=== PATIENT | male | born 1960 | race Caucasian/White ===

== ENCOUNTER 2017-07-31 10:04 | Emergency (ER) | payer BC ==
[~2017-07-31] VITALS: Ht 182.9 cm; Wt 117.9 kg
[~2017-07-31 10:04] MED LIST: ALBU90I INH; AMOX500 PO; ASPI81CH; AZIT250 PO; CEPH500 PO; Ibuprofen Ib200 MG; K-Dur20 MEQ PO; MAGNESIUM400 MG PO; METF500C; METO50ER PO; OXYACE5T PO; Pravachol40 MG; [UNRECOGNIZED DRUG - REMARK]; [UNRECOGNIZED DRUG - REMARK]
[2017-07-31] MEDS ORDERED: TUSSIONEX PENN115 ML PO (11:09)
[2017-07-31] MEDS ORDERED: Prednisone20 MG PO (11:09)
[2017-07-31] MEDS ORDERED: ALBU90OI INH (11:09)
[2017-07-31] MEDS ORDERED: BENZ100A PO (11:09)
== END 2017-07-31 11:14 | disposition home or self-care (01) ==
LOC: ER 10:04
DX: J40 Bronchitis, not specified as acute or chronic (principal); Z79.899 Other long term (current) drug therapy; Z79.82 Long term (current) use of aspirin; Z79.84 Long term (current) use of oral hypoglycemic drugs; I10 Essential (primary) hypertension; I48.91 Unspecified atrial fibrillation
CPT/HCPCS: 71046; 94640; 99284

== ENCOUNTER 2019-01-15 08:24 | Day surgery (SDC) | payer BC ==
[~2019-01-15] VITALS: Ht 185.4 cm; Wt 109.7 kg
[~2019-01-15 08:24] MED LIST changes: +ALBU90OI INH; -ASPI81CH; +ASPI81CH PO; +BENZ100A PO; +IBUP400 PO; -METF500C; +METF500C PO; -Pravachol40 MG; +Pravachol40 MG PO; +Prednisone20 MG PO; +THERA1 EACH PO; +TUSSIONEX PENN115 ML PO
--- NOTE | 2019-01-15 09:19 | NUR ---
Ambulatory in Day Surgery History, Chart, Medications and Allergies reviewed before start of procedure. Lungs clear T/O to Auscultation. Patient confirms NPO status and agrees with scheduled surgery. Pre-Op teaching done. Pt verbalizes understanding.
--- NOTE | 2019-01-15 17:41 | NUR ---
PT HAS BEEN STABLE POST OP. PT WORKED WELL WITH NURSING TO MOBILIZE OOB TO CHAIR AND TO AMBULATE. PT DENIES PAIN. SCHEDULED TYLENOL AND TORADOL GIVEN. TOMER DIET WELL. VOIDING WITH URINAL. IV INFUSING, MAY SL WHEN TOMER PO WELL. DRESSING CDI. PAS, TEDS AND POLAR PACK IN PLACE. AM LABS TO BE DRAWN. PT HAS NOT EVALUATED PATIENT YET. PT USES CALL LIGHT APPROPRIATELY NEEDED.
[2019-01-16 04:52] LABS: BASOPHILS ABSOLUTE AUTO 0.01 K/mm3 (0.00-0.23); BASOPHILS PERCENT AUTO 0 % (0-2); EOSINOPHILS PERCENT AUTO 0 % (0-6); Hematocrit 40.3 % (37.0-53.0); Hemoglobin 13.9 g/dL (13.5-17.5); IMMATURE GRAN ABSOLUTE AUTO 0.03 K/mm3 (0.00-0.10); IMMATURE GRAN PERCENT AUTO 0 % (0-1); LYMPHOCYTES PERCENT AUTO 11 % (21-46); MONOCYTES ABSOLUTE AUTO 0.54 K/mm3 (0.16-1.47); MONOCYTES PERCENT AUTO 5 % (4-13); Mean Corpuscular HGB Conc 34.5 g/dL (31.5-36.5); Mean Corpuscular Volume 93 fL (80-100); Mean Platelet Volume 9.9 fL (9.1-12.4); NEUTROPHILS ABSOLUTE AUTO 9.13 K/mm3 (1.96-9.15); NEUTROPHILS PERCENT AUTO 84 % (41-73); Platelet Count 198 K/mm3 (150-400); RDW Coefficient Variation 12.1 % (11.7-14.2); RDW Standard Deviation 41.4 fL (35.1-46.3); Red Blood Cell Count 4.35 M/mm3 (4.30-5.90); White Blood Cell Count 10.91 K/mm3 (4.00-11.30)
[2019-01-16 05:10] LABS: Anion Gap 4 mmol/L (6-16); Blood Urea Nitrogen 14 mg/dL (8-24); Bun/Creatinine Ratio 17.5 (12.0-20.0); CO2, Blood 27 mmol/L (21-32); Calcium, Blood 8.4 mg/dL (8.5-10.1); Chloride, Blood 107 mmol/L (98-108); Glomerular Filtration Rate >60 (60-); Glucose, Blood 183 mg/dL (70-99); Magnesium, Blood 2.3 mg/dL (1.6-2.4); Potassium, Blood 4.5 mmol/L (3.5-5.5); Sodium, Blood 138 mmol/L (136-145)
--- NOTE | 2019-01-16 07:54 | NUR ---
SUMMARY: POD1 RIGHT TKA BY DR. MCKNIGHT. VSS, AFEBRILE, VOIDING, TOLERATING PO DIET WELL. PAIN WELL CONTROLLED WITH 10MG OXICODONE AND IV DILAUDID X2 THIS SHIFT. PT AMBULATING HALLS SEVERAL TIMES THIS SHIFT AND WELL MOTIVATED. ANTICIPATE DC HOME LATER THIS DAY AFTER WORKING WITH PT/OT.
[2019-01-16] MEDS ORDERED: OXYC5 PO (18:09)
[2019-01-16] MEDS ORDERED: Aspirin325 MG PO (18:09)
--- NOTE | 2019-01-16 18:15 | NUR ---
DISCHARGE PT CLEARED THERAPY, TOLERATING DIET, VOIDING, PAIN TOLERABLE. SCRIPTS AND DRSGS GIVEN. ESCORTED VIA W/C OUT.
== END 2019-01-16 18:20 | disposition home or self-care (01) ==
LOC: ORSCMMR 08:24 → ORD 10:30 → ORSCMMR 15:24 → SURS 15:24 → ORSCMMR 01-16 18:20 → SURS 01-16 18:20
PROVIDERS: Orthopaedic Surgery
PROC: 0SRC0J9 Replacement of Right Knee Joint with Synthetic Substitute, Cemented, Open Approach (ICD-10-PCS; principal; 2019-01-15 10:30)
DX: M17.11 Unilateral primary osteoarthritis, right knee (principal); I10 Essential (primary) hypertension; I48.0 Paroxysmal atrial fibrillation; G47.33 Obstructive sleep apnea (adult) (pediatric); E11.9 Type 2 diabetes mellitus without complications; E78.00 Pure hypercholesterolemia, unspecified; Z79.82 Long term (current) use of aspirin; Z79.899 Other long term (current) drug therapy
CPT/HCPCS: 36415; 73560-RT; 80048; 82947; 83735; 85025; 88300; 97110; 97116; 97162; C1713; C1776; J0171; J0690; J0735; J1100; J1170; J1885; J2250; J2405; J2704; J2795; J3010; J7120

== ENCOUNTER → 2022-09-23 | Outpatient (CLI) | payer OTHER ==
[~2022-09-23] MED LIST changes: +Aspirin325 MG PO; +OXYC5 PO
[2022-09-23 11:08] LABS: Stool Occult Bld Immuno 1 Negative (NEGATIVE); Stool Occult Bld Immuno 2 Negative (NEGATIVE)
== END | disposition home or self-care (01) ==
LOC: LAB SHORT 06:30 → LAB 07:30
PROVIDERS: Internal Medicine Gastroenterology
DX: Z09 Encounter for follow-up examination after completed treatment for conditions other than malignant neoplasm (principal); Z86.010 Personal history of colon polyps
CPT/HCPCS: 82274